=== PATIENT | female | born 1985 | race African-American/Black ===

== ENCOUNTER 2017-01-29 19:11 | Emergency (ER) | payer MEDICAID, OTHER ==
[~2017-01-29] VITALS: Ht 172.7 cm; Wt 56.7 kg
[~2017-01-29 19:11] MED LIST: ALBU8.5H2 IH
[2017-01-29 19:21] VITALS: BP 124/73
[2017-01-29] MEDS ORDERED: ACETAMINOPHEN ES 500 MG TABLET PO ONE (19:30)
[2017-01-29] MEDS ORDERED: ACETAMINOPHEN ES 500 MG TABLET ONE (19:35)
[2017-01-29 19:48] LABS: APPEARANCE,URINE Clear (CLEAR); BILIRUBIN,URINE Negative (NEGATIVE); BLOOD, URINE Negative Ery/uL (NEGATIVE); COLOR,URINE Yellow (YELLOW); KETONES,URINE Negative (NEGATIVE); LEUKOCYTE ESTERASE ,URINE Negative (NEGATIVE); NITRITE, URINE Negative (NEGATIVE); PH,URINE 8.5 (5.0-8.0); PROTEIN,URINE Trace mg/dl (NEGATIVE); UGLUCOSE Negative (NEGATIVE); UROBILINOGEN,URINE 0.2 EU/dL (0.2)
[2017-01-29 20:03] LABS: BACTERIA,URINE Rare /HPF (None Seen); RBC,URINE 0-2 /HPF (0-2); SQUAMOUS EPITHELIAL CELL,UR Few /HPF (None Seen); WBC,URINE 0-2 /HPF (0-3)
== END 2017-01-29 20:32 | disposition home or self-care (01) ==
LOC: ER 19:13
DX: R09.1 Pleurisy (principal); J45.909 Unspecified asthma, uncomplicated
CPT/HCPCS: 71010-TC; 81000-TC; A4606; Z7610

== ENCOUNTER 2017-09-05 11:09 | Emergency (ER) | payer MEDICAID, OTHER ==
[~2017-09-05] VITALS: Ht 172.7 cm; Wt 56.7 kg
[~2017-09-05 11:09] MED LIST changes: -ALBU8.5H2 IH; +ALBU8.5H8 IH
[2017-09-05 11:15] VITALS: BP 111/66
--- NOTE | 2017-09-05 12:07 | NUR ---
URINE SENT TO LAB
[2017-09-05] MEDS ORDERED: KETOROLAC TROMETHAMINE 15 MG/ML VIAL ONE (12:29)
[2017-09-05] MEDS ORDERED: KETOROLAC TROMETHAMINE INJ 30 MG/ML VIAL IM ONE (12:30)
== END 2017-09-05 13:20 | disposition home or self-care (01) ==
LOC: ER 11:12
DX: R10.9 Unspecified abdominal pain (principal); J45.909 Unspecified asthma, uncomplicated; N94.6 Dysmenorrhea, unspecified; F10.10 Alcohol abuse, uncomplicated; F17.200 Nicotine dependence, unspecified, uncomplicated; Z91.012 Allergy to eggs; Z88.6 Allergy status to analgesic agent; Z88.8 Allergy status to other drugs, medicaments and biological substances; Z60.2 Problems related to living alone
CPT/HCPCS: 84703; 99283; A4606; J1885; Z7610

== ENCOUNTER 2023-06-22 12:12 | Emergency (ER) | payer BC, OTHER ==
[~2023-06-22] VITALS: Ht 172.7 cm; Wt 56.2 kg
[2023-06-22 13:12] LABS: BASOPHILS # (AUTO) 0.1 K/uL (0.0-0.2); BASOPHILS % (AUTO) 0.8 % (0.0-2.0); EOSINOPHILS # (AUTO) 0.7 K/uL (0.0-0.7); EOSINOPHILS % (AUTO) 10.2 % (0.0-6.0); HEMATOCRIT 24 % (33-45); LYMPHOCYTES % (AUTO) 55.1 % (20.0-44.0); MEAN CORPUSCULAR HEMOGLOBIN 17 PG (26.0-33.0); MEAN CORPUSCULAR HGB CONC 29 g/dl (31.0-36.0); MEAN CORPUSCULAR VOLUME 60 fL (82-100); MONOCYTES # (AUTO) 0.3 K/uL (0.1-1.30); MONOCYTES % (AUTO) 4.7 % (2.0-12.0); NEUTROPHILS # (AUTO) 2.1 K/uL (1.8-8.9); NEUTROPHILS % (AUTO) 29.2 % (43.0-81.0); PLATELET COUNT (AUTO) 506 K/uL (150-450); RED BLOOD CELL COUNT(AUTO) 4.08 MIL/uL (4.0-5.2); RED CELL DISTRIBUTION WIDTH 24.1 % (11.5-15.0); WHITE BLOOD COUNT (AUTO) 7.3 K/uL (4.3-11.0)
[2023-06-22 13:13] LABS: CALCIUM, SERUM 8.8 mg/dL (8.5-10.1); CREATININE 0.8 mg/dL (0.6-1.3); INR 1.09 (0.91-1.10); PARTIAL THROMBOPLASTIN TIME 24.5 SEC (24.3-34.3); POTASSIUM 3.8 mmol/L (3.5-5.1); PROTHROMBIN TIME 11.5 SECS (9.2-11.1)
[2023-06-22 13:21] LABS: ALBUMIN 3.8 g/dL (3.4-5.0); BILIRUBIN,TOTAL 0.2 mg/dL (0.2-1.0); TOTAL PROTEIN, SERUM 7.9 g/dL (6.4-8.2)
[2023-06-22 13:25] LABS: HEMOGLOBIN 6.9 g/dL (11.5-14.8)
[2023-06-22 13:36] LABS: PREGNANCY TEST URINE QUAL NEGATIVE (NEGATIVE)
[2023-06-22 13:39] LABS: BASOPHILS % (MANUAL) 0 % (0.0-2.0); EOSINOPHILS % (MANUAL) 16 % (0-4); LYMPHOCYTES % (MANUAL) 21 % (16-48); MONOCYTES % (MANUAL) 6 % (0-11.0); NEUTROPHILS % (MANUAL) 57 (42-76); PLATELET ESTIMATE ADEQUATE
[2023-06-22 13:40] LABS: ANISOCYTOSIS 1+; HYPOCHROMASIA 2+; STOMATOCYTES 1+; TARGET CELLS 1+
[2023-06-22 19:20] VITALS: BP 123/84; TEMP 98.3; O2SAT 100
== END 2023-06-22 19:20 | disposition home or self-care (01) ==
LOC: ER 12:17
DX: D64.9 Anemia, unspecified (principal); N92.0 Excessive and frequent menstruation with regular cycle; J45.909 Unspecified asthma, uncomplicated; Z91.012 Allergy to eggs; Z88.6 Allergy status to analgesic agent; Z60.2 Problems related to living alone
CPT/HCPCS: 99285; 36430; 85025; 80048; 80076; 84703; 85007; 36415; 85730; 86850; 86923; P9016